=== PATIENT | female | born 1960 | race Caucasian/White ===

== ENCOUNTER 2016-10-21 14:14 | Emergency (ER) | payer OTHER, BC ==
--- NOTE | 2016-10-21 15:23 | ED ---
HPI Chest Pain - HPI Summary HPI Summary: 56F w/ PMH of lupus, ESRD, and HTN presents with back pain between the shoulders pain today. She states never had this before but is concerned having an NE. She states the back pain started at 12:30pm and last till 1:30pm. She admits to nausea with it. She denies any pain into arm, diaphoresis, and SOB. She states since then she keeps getting these seconds of sternal chest pain. She has a cough which she states she has had as she is getting over a cold. She denies any abdominal pain, vomiting, diarrhea or constipation. She denies any neck pain. She is on Lovenox since she has had two PE in the past but states pain is not like PE in past. Her last stress test was 10 years ago. She was started on a new blood pressure medication on and says that has been nauseous from that too. 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 She is a nonsmoker. She is not diabetic. Her grandparents did have heart attack after age 50. - History of Current Complaint Chief Complaint: EDBackInjuryPain Time Seen by Provider: 10/21/16 14:58 Pain Intensity: 2 - Additional Pertinent History Primary Care Physician: [id number] - Allergy/Home Medications Allergies/Adverse Reactions: Allergies Allergy/AdvReac Type Severity Reaction Status Date / Time Codeine Allergy Unknown Verified 10/21/16 14:20 Reaction Details Sulfamethoxazole Allergy See Comment Verified 10/21/16 14:20 w/Trimethoprim [From Bactrim] PMH/Surg Hx/FS Hx/Imm Hx Endocrine/Hematology History: Reports: Hx Anticoagulant Therapy - lovenox, Hx Systemic Lupus Erythematosus Denies: Hx Diabetes Cardiovascular History: Reports: Hx Deep Vein Thrombosis, Hx Embolism Denies: Hx Congestive Heart Failure, Hx Hypertension, Hx Pacemaker/ICD Respiratory History: Reports: Hx Pneumonia, Hx Pulmonary Embolism, Hx Seasonal Allergies Denies: Other Respiratory Problems/Disorders History: Reports: Hx Acute Renal Failure, Hx Chronic Renal Failure, Hx Renal Disease - FROM LUPUS Musculoskeletal History: Reports: Hx Arthritis - with lupus flare Denies: Hx Osteoporosis Sensory History: Reports: Hx Contacts or Glasses Denies: Hx Hearing Aid Opthamlomology History: Reports: Hx Contacts or Glasses Psychiatric History: Reports: Hx Anxiety, Hx Depression Denies: Hx Panic Disorder - Cancer History Hx Chemotherapy: Yes - for LUPUS Hx Radiation Therapy: No - Surgical History Surgery Procedure, Year, and Place: Hx Anesthesia Reactions: No - Immunization History Date of Tetanus Vaccine: up to date Date of Influenza Vaccine: 03/18/16 Infectious Disease History: No Infectious Disease History: Denies: History Other Infectious Disease, Traveled Outside the [place] in Last 30 Days - Family History Known Family History: Positive: Cardiac Disease - Social History Alcohol Use: Occasionally Alcohol Amount: 1 drink/month Substance Use Type: Reports: None Smoking Status (MU): Never Smoked Tobacco Have You Smoked in the Last Year: No Review of Systems Negative: Fever Positive: Chest Pain Negative: Shortness Of Breath Negative: Abdominal Pain, Vomiting, Diarrhea, Nausea Negative: Headache All Other Systems Reviewed And Are Negative: Yes Physical Exam Triage Information Reviewed: Yes Vital Signs On Initial Exam: Initial Vitals Temp Pulse Resp BP Pulse Ox 98.7 F 102 16 155/92 100 10/21/16 14:21 10/21/16 14:21 10/21/16 14:21 10/21/16 14:21 10/21/16 14:21 Vital Signs Reviewed: Yes Appearance: Positive: Well-Appearing Skin: Positive: Warm, Dry Head/Face: Positive: Normal Head/Face Inspection Eyes: Positive: Normal, Conjunctiva Clear ENT: Positive: Normal ENT inspection, Pharynx normal, TMs normal Respiratory/Lung Sounds: Positive: Clear to Auscultation, Breath Sounds Present , Other - chest wall nontender Cardiovascular: Positive: Normal, RRR Abdomen Description: Positive: Nontender, Soft Bowel Sounds: Positive: Present Musculoskeletal: Positive: Strength/ROM Intact - of upper arms, Other - good pulses, nontender to upper thoracic back - Samira Coma Scale Coma Scale Total: 15 Diagnostics - Vital Signs Vital Signs Temp Pulse Resp BP Pulse Ox 10/21/16 14:21 98.7 F 102 16 155/92 100 - Laboratory Result Diagrams: 10/21/16 15:20 10/21/16 15:20 Lab Statement: Any lab studies that have been ordered have been reviewed, and results considered in the medical decision making process. - Radiology chest Xray Interpretation: No Acute Changes Radiology Interpretation Completed By: Radiologist - EKG No standard instances Cardiac Rate: NL EKG Rhythm: Sinus Rhythm ST Segment: Normal Re-Evaluation - Re-Evaluation First Eval Re-Evaluation Time: 16:43 Change: Worse Comment: says chest pain with back pain reoccurred for instant, is not reproducible Chest Pain Course/Dx - Course Course Of Treatment: 56F w/ lupus presents with back pain between shoulder blades and seconds of intermittent chest pain. denies any SOB or pain into arms. never had this before. has history of PE that is on lovenox for but states pain is not like PE pain. back pain resolved at time but continues to get seconds of sternal chest pain. labs normal WBC, first troponin normal. Co2 14. spoke with dr griffin said to get ABG and d-dimer. unable to get CTA due to gfr being too low. spoke with dr hodges will have someone evaluate in ED. patient was evaluated by hospitalist who believe this is more of a chronic condition rather than ACS.normal d-dimer, EKG, chest xray. signed out to Penelope pending second troponin for disposition. - Chest Pain Differential Diagnosis/HQI/PQRI: Acute NE, Angina, Chest Wall, Lower Respiratory Infection, Pulmonary Embolism - Diagnoses Provider Diagnoses: Chest pain, Back pain - Provider Notifications Discussed Care Of Patient With: dr hodges Time Discussed With Above Provider: 16:51 - will consult Discharge - Discharge Plan Condition: Stable Disposition: OTHER Discharge Disposition Comment: signed out to [facility] Cortez pending troponin Patient Education Materials: Chest Pain (ED) Referrals: Lesia Hu MD [Primary Care Provider] - Additional Instructions: Follow up with radiology equipment servicer within 5 days, is suggested that get a stress test soon Return to ED if develop shortness of breath, chest pain radiates into arm, or any new or worsening symptoms
[2016-10-21] MEDS ORDERED: Aspirin Low Dose CHEW TAB* 81 MG PO ONE (15:35)
[2016-10-21 15:36] LABS: Hematocrit 30 % (35-47); Hemoglobin 9.8 g/dl (12.0-16.0); Mean Corpuscular HGB Conc 33 g/dl (31-36); Mean Corpuscular Hemoglobin 28 pg (27-31); Mean Corpuscular Volume 86 fL (80-97); Mean Platelet Volume 8 um3 (7.4-10.4); Red Blood Count 3.47 10^6/ul (4.0-5.4); Red Cell Distribution Width 15 % (10.5-15); White Blood Count 9.7 10^3/ul (3.5-10.8)
[2016-10-21 15:52] LABS: Albumin 3.4 g/dL (3.2-5.2); BUN/Creatinine Ratio 15.6 (8-20); Calcium 8.4 mg/dL (8.6-10.3); EGFR African American 37.8 (>60); EGFR Non-African American 29.4 (>60); Globulin 2.6 g/dL (2-4); Potassium 5.2 mmol/L (3.5-5.0); Total Bilirubin 0.2 mg/dL (0.2-1.0)
--- NOTE | 2016-10-21 16:01 | RAD ---
INDICATION: Chest pain. Cough COMPARISON: March 25, 2014 TECHNIQUE: PA and lateral dual-energy views were obtained. FINDINGS: Bones/Soft Tissues: There are no acute bony findings. Cardiomediastinal: The cardiomediastinal silhouette is normal. Lungs: There are no infiltrates. Pleura: There are no pleural effusions. Other: None IMPRESSION: NO ACTIVE DISEASE.
[2016-10-21 17:23] LABS: PCO2 Arterial 26 mmHg (35-45)
--- NOTE | 2016-10-21 20:42 | PN ---
Progress Note - Progress Note Note: First Trop 0.00 Second Trop 0.74 Third trop 0.[address] Daugherty and Dr. Fernandez approval d/t trop 0.00 likely the second trop an abnormal draw/value. Patient OK with discharge.
[2016-10-21 20:46] VITALS: BP 164/125
--- NOTE | 2016-10-21 22:35 | CONS ---
HOSPITAL MEDICINE CONSULTATION: DATE OF CONSULT: 10/21/16 PRIMARY CARE PHYSICIAN: Dr. Hu. ATTENDING PHYSICIAN: Dr. Arianne Robert (dictation provided by Keira Veras NP). REASON FOR CONSULTATION: Question of need for admission. HISTORY OF PRESENT ILLNESS: Ms. Tafoya is a 56-year-old female with a past medical history of lupus, CKD, anemia, Sjogren's, PE and DVT, on chronic anticoagulation, who presents to the hospital today with concern for back pain. Ms. Tafoya states that she has been feeling rather low recently. She had had a lupus flare about 2 or 3 weeks ago, but that had passed with treatment with prednisone. Today, the patient was cleaning up around her house when she developed some back pain and mid back on the right. She lied down, got up, took a hot shower. She describes it as a discrete, localized throbbing sensation. The pain lasted about 20 minutes. After this, she also had some right-sided chest discomfort which she described as "zing sensation." She does have chronic pain in her chest which she relates to her lupus. She has been taking all her medications regularly including her Lovenox. She denies any other complaint today. She has had no fever, no cough. She has been eating and drinking normally. No issues with urination and she has been having normal formed bowel movements. In the emergency room, Ms. Tafoya had a chest x-ray, which showed no acute abnormality. She did have numerous laboratory abnormalities, all of which were chronic. She is anemic with a hemoglobin of 9.8. Her potassium is elevated to 5.2. Her serum bicarbonate is 14. BUN and creatinine are elevated at 28 and 1.79 respectively; however, these are all consistent with the patient's long history of lupus and CKD with associated anemia and low bicarbonate levels. When questioned, Ms. Tafoya states she came to the emergency room because of her multiple chronic medical issues and she was concerned that perhaps something was wrong although she was asymptomatic with no further complaints. PAST MEDICAL HISTORY: 1. Lupus. 2. Chronic kidney disease. 3. Anemia. 4. Raynaud's. 5. GERD. 6. Sjogren's. 7. History of DVT and PE, on Lovenox. 8. Hypertension. MEDICATIONS: 1. Rituxan mg IV as directed. 2. Prednisone 10 mg every other day. 3. Sodium polystyrene sulfonate 15 g p.o. daily. 4. Sertraline 50 mg p.o. daily. 5. Mycophenolate 500 mg p.o. b.i.d. 6. Hydroxychloroquine 200 mg p.o. b.i.d. 7. Esomeprazole 40 mg p.o. daily p.r.n. 8. Enoxaparin 80 mg subcutaneously daily. 9. Claritin p.r.n. 10. Ethacrynic acid as directed. ALLERGIES: To CODEINE, SULFAMETHOXAZOLE, and TRIMETHOPRIM. FAMILY HISTORY: The patient reports her dad has thyroid "issues." Mom is alive and well at 82. SOCIAL HISTORY: No report of alcohol, tobacco, or drug use. The patient lives with her , who is the healthcare proxy. REVIEW OF SYSTEMS: A 14-point review of systems was completed with Ms. Tafoya and all those not mentioned above were negative. PHYSICAL EXAM: Vital Signs: Temperature 98.7, heart rate 79, respiratory rate 22, O2 saturation 98% on room air, blood pressure 132/90. General: Ms. Tafoya is sitting in the bed with her at the bedside. She is in no acute distress. Neuro: She is alert. She is oriented x3. She moves all extremities equally. There is no facial asymmetry or focal weakness. Extraocular movements are intact. Heart: S1, S2. No murmur, rub, or gallop and regular. Lungs are clear to auscultation bilaterally with no accessory muscle use and good aeration. The abdomen is soft, nontender with bowel sounds positive x4. Extremities: No cyanosis. No edema. Skin is intact. DIAGNOSTIC STUDIES/LAB DATA: WBC 9.7, hemoglobin 9.8, hematocrit 30, platelet count 338. D-dimer less than 200. Blood gas shows pH 7.31, PCO2 26, PO2 94, bicarbonate 15.7. Sodium 136, potassium 5.2, chloride 116, serum bicarbonate 14 , BUN 28, creatinine 1.79, glucose 109, lactic acid 0.5. Chest x-ray again shows no acute process. ASSESSMENT: Ms. Tafoya is a 56-year-old female with a complicated past medical history including lupus with associated anemia and chronic kidney disease in addition to Sjogren's, Raynaud's, and history of deep venous thrombosis/pulmonary embolism, on Lovenox therapy who presents today to the hospital with concern for episode of right-sided back pain. In the emergency room, she had multiple laboratory abnormalities and this raised the question of whether the patient should be admitted to the hospital. She again is asymptomatic at this point. She did describe some chest discomfort which is atypical in its character. Her first troponin was negative. I would recommend a repeat troponin though I am not suspicious that she has an acute coronary syndrome. The back pain is likely musculoskeletal in origin. She has no evidence of deep venous thrombosis or pulmonary embolism. Her D-dimer is less than 200 and she is on chronic anticoagulation. She has no evidence of pneumonia on chest x-ray. I think Ms. Tafoya is medically stable for discharge to home to follow up with her providers including Dr. Hu, Dr. Solorio, and Dr. Felipe, her material handler. TIME SPENT: Approximately 45 minutes were spent on the consultation of this patient, more than half time spent with her at the bedside reviewing the events leading up to this hospitalization, performing the physical examination, and reviewing the plan of care. KEIRA VERAS NP CC: Dr. Hu* [id number]/[facility] #: [id number] MTDD
== END 2016-10-21 20:51 ==
LOC: ED 14:14
DX: R07.9 Chest pain, unspecified (principal); M54.6 Pain in thoracic spine; I12.0 Hypertensive chronic kidney disease with stage 5 chronic kidney disease or end stage renal disease; N18.6 End stage renal disease; M32.9 Systemic lupus erythematosus, unspecified; Z86.718 Personal history of other venous thrombosis and embolism; Z79.01 Long term (current) use of anticoagulants; M35.00 Sjogren syndrome, unspecified; I73.00 Raynaud's syndrome without gangrene
CPT/HCPCS: 36415; 36600; 71020; 80053; 82803; 83605; 84484; 85025; 85379; 93005; 99283; A9270-GY

== ENCOUNTER 2018-03-30 12:37 | Emergency (ER) | payer OTHER ==
[2018-03-30 13:57] LABS: ABS Basophils 0.1 10^3/ul (0-0.2); ABS Eosinophils 0.1 10^3/ul (0-0.6); ABS Lymphocytes 1.3 10^3/ul (1.0-4.8); ABS Monocytes 1.1 10^3/ul (0-0.8); ABS Nucleated RBC 0 10^3/ul; Hematocrit 35 % (35-47); Hemoglobin 11.2 g/dl (12.0-16.0); Lymphocyte % 10.1 % (25-47); Mean Corpuscular HGB Conc 32 g/dl (31-36); Mean Corpuscular Hemoglobin 28 pg (27-31); Mean Corpuscular Volume 86 fL (80-97); Mean Platelet Volume 8.5 fL (7.4-10.4); Nucleated Red Blood Cells % 0; Platelet Count 352 10^3/ul (150-450); Red Blood Count 4.03 10^6/ul (4.00-5.40); Red Cell Distribution Width 15 % (10.5-15); White Blood Count 12.7 10^3/ul (3.5-10.8)
[2018-03-30 14:05] LABS: INR 1.03 (0.77-1.02)
[2018-03-30 14:14] LABS: EGFR Non-African American 30.5 (>60)
--- NOTE | 2018-03-30 14:15 | ED ---
Neck Pain - HPI Summary HPI Summary: Patient is a 57-year-old female with a history of SLE and Sjogren's on chronic steroid use and recently diagnosed with Haney's palsy presenting to the ED with right sided submandibular mass. She was sent here from her PCP office, Dr. hu. She states the mass has grown significantly over the past 2-3 days. It was not abrupt and did not develop immediately following chewing. This is never happened to her before. She denies any fevers, sweats, chills. Endorses odynophagia, but denies dysphagia. Endorses some right ear pain which she states feels as though it is a pressure. She denies any left-sided neck tenderness or posterior cervical spine tenderness. She is able to rotate her neck as well as flex and extend. She denies any chest pain, shortness of breath , belly pain. Denies any other symptoms otherwise. - History of Current Complaint Chief Complaint: EDNeckComplaint Stated Complaint: THROAT SWELLING Time Seen by Provider: 03/30/18 13:36 Hx Obtained From: Patient Timing: Constant Onset/Duration: Gradual Onset Severity Initially: Severe Severity Currently: Severe Pain Intensity: 8 Pain Scale Used: 0-10 Numeric Location: Discrete At: - right submandibular mass Aggravating Factors: Nothing Alleviating Factors: Nothing Associated Signs & Symptoms: Positive: Swelling. Negative: Redness, Bruising, Fever, Nuchal Rigity, Weakness, Headache, Paresthesia - Risk Factors Meningitis Risk Factors: Negative - Allergies/Home Medications Allergies/Adverse Reactions: Allergies Allergy/AdvReac Type Severity Reaction Status Date / Time codeine Allergy Unknown Verified 03/30/18 12:51 Reaction Details sulfamethoxazole Allergy See Comment Verified 03/30/18 12:51 [From Bactrim] trimethoprim [From Bactrim] Allergy See Comment Verified 03/30/18 12:51 Home Medications: Home Medications Amoxicillin PO (*) [Amoxicillin 875 MG (*)] 875 mg PO BID 03/30/18 [History Confirmed 03/30/18] Hipolito/D3/Mag11/Zinc/Supervisor Color Making/Yonny/Bor [Caltrate 600+D Plus] 1 tab PO BID 03/30/18 [ History Confirmed 03/30/18] Cetirizine* [ZyrTEC 10 MG TAB*] 10 mg PO QPM 03/30/18 [History Confirmed ] Cholecalciferol TAB* [Vitamin D TAB*] 2,000 units PO DAILY 03/30/18 [History Confirmed 03/30/18] Esomeprazole(NF) [NexIUM(NF)] 40 mg PO DAILY PRN 03/30/18 [History Confirmed 10/10] Mometasone NASAL (NF) [Nasonex (NF)] 1 spray BOTH NARES DAILY 03/30/18 [History Confirmed 03/30/18] Mycophenolate Mofetil TAB(*) [Cellcept TAB(*)] 1,000 mg PO BID 03/30/18 [ History Confirmed 03/30/18] Sertraline* [Zoloft*] 75 mg PO DAILY 03/30/18 [History Confirmed 03/30/18] riTUXimab* [Rituxan*] 375 mg IV Q168D 03/30/18 [History Confirmed 03/30/18] PMH/Surg Hx/FS Hx/Imm Hx Previously Healthy: Yes Endocrine/Hematology History: Reports: Hx Anticoagulant Therapy - lovenox, Hx Systemic Lupus Erythematosus Denies: Hx Diabetes Cardiovascular History: Reports: Hx Deep Vein Thrombosis, Hx Embolism Denies: Hx Congestive Heart Failure, Hx Hypertension, Hx Pacemaker/ICD Respiratory History: Reports: Hx Pneumonia, Hx Pulmonary Embolism, Hx Seasonal Allergies Denies: Other Respiratory Problems/Disorders History: Reports: Hx Acute Renal Failure, Hx Chronic Renal Failure, Hx Renal Disease - FROM LUPUS Musculoskeletal History: Reports: Hx Arthritis - with lupus flare Denies: Hx Osteoporosis Sensory History: Reports: Hx Contacts or Glasses Denies: Hx Hearing Aid Opthamlomology History: Reports: Hx Contacts or Glasses Neurological History: Denies: Other Neuro Impairments/Disorders - HX LUPUS Psychiatric History: Reports: Hx Anxiety, Hx Depression Denies: Hx Panic Disorder - Cancer History Hx Chemotherapy: Yes - for LUPUS Hx Radiation Therapy: No - Surgical History Surgery Procedure, Year, and Place: Hx Anesthesia Reactions: No - Immunization History Date of Tetanus Vaccine: up to date Date of Influenza Vaccine: 03/18/16 Hx Pertussis Vaccination: No Immunizations Up to Date: Yes Infectious Disease History: No Infectious Disease History: Denies: History Other Infectious Disease, Traveled Outside the [place] in Last 30 Days - Family History Known Family History: Positive: Cardiac Disease - Social History Occupation: Employed Full-time Lives: With Family Alcohol Use: None Alcohol Amount: 1 drink/month Hx Substance Use: No Substance Use Type: Reports: None Hx Tobacco Use: No Smoking Status (MU): Never Smoked Tobacco Have You Smoked in the Last Year: No Review of Systems Constitutional: Negative Negative: Fever, Chills, Fatigue Negative: Blurred Vision, Diplopia, Drainage Positive: Other - right-sided submandibular mass, protrusion of the tongue to the right unaffected side, likely secondary to Haney's palsy Negative: Palpitations, Chest Pain Negative: Shortness Of Breath, Cough Genitourinary: Negative Positive: no symptoms reported, see HPI Negative: Arthralgia, Myalgia Negative: Rash, Bruising Neurological: Negative All Other Systems Reviewed And Are Negative: Yes Physical Exam Triage Information Reviewed: Yes Vital Signs On Initial Exam: Initial Vitals Temp Pulse Resp BP Pulse Ox 97.9 F 87 16 168/98 99 03/30/18 12:48 03/30/18 12:48 03/30/18 12:48 03/30/18 12:48 03/30/18 12:48 Vital Signs Reviewed: Yes Appearance: Positive: Well-Appearing, Well-Nourished Skin: Positive: Skin Color Reflects Adequate Perfusion Head/Face: Positive: Normal Head/Face Inspection, Other - Right sided submandibular mass ENT: Positive: Other - Tongue protrusion to the right side (affected side) likely secondary to Haney's palsy Neck: Positive: Supple, Tenderness @ - Right submandibular area measuring approximately 5 cm in diameter Respiratory/Lung Sounds: Positive: Clear to Auscultation, Breath Sounds Present Cardiovascular: Positive: Pulses are Symmetrical in both Upper and Lower Extremities. Negative: Leg Edema Left, Leg Edema Right Bowel Sounds: Positive: Present Musculoskeletal: Positive: Normal, Strength/ROM Intact Neurological: Positive: Sensory/Motor Intact, Alert, Oriented to Person Place, Time, Speech Normal Psychiatric: Positive: Normal, Affect/Mood Appropriate AVPU Assessment: Alert Diagnostics - Vital Signs Vital Signs Temp Pulse Resp BP Pulse Ox 03/30/18 12:48 97.9 F 87 16 168/98 99 - Laboratory Lab Results: Lab Results 03/30/18 03/30/18 Range/Units 13:46 13:46 WBC 12.7 H (3.5-10.8) 10^3/ul RBC 4.03 (4.00-5.40) 10^6/ul Hgb 11.2 L (12.0-16.0) g/dl Hct 35 (35-47) % MCV 86 (80-97) fL MCH 28 (27-31) pg MCHC 32 (31-36) g/dl RDW 15 (10.5-15) % Plt Count 352 (150-450) 10^3/ul MPV 8.5 (7.4-10.4) fL Neut % (Auto) 79.1 (38-83) % Lymph % (Auto) 10.1 L (25-47) % [place] % (Auto) 8.7 H (0-7) % Eos % (Auto) 1.0 (0-6) % Baso % (Auto) 1.1 (0-2) % Absolute Neuts (auto) 10.0 H (1.5-7.7) 10^3/ul Absolute Lymphs (auto) 1.3 (1.0-4.8) 10^3/ul Absolute Monos (auto) 1.1 H (0-0.8) 10^3/ul Absolute Eos (auto) 0.1 (0-0.6) 10^3/ul Absolute Basos (auto) 0.1 (0-0.2) 10^3/ul Absolute Nucleated RBC 0 10^3/ul Nucleated RBC % 0 INR (Anticoag Therapy) 1.03 H (0.77-1.02) APTT 48.3 H (26.0-36.3) seconds Result Diagrams: 03/30/18 13:46 03/30/18 13:46 Lab Statement: Any lab studies that have been ordered have been reviewed, and results considered in the medical decision making process. - CT No standard instances CT Interpretation Completed By: Radiologist - IMPRESSION: 1. THERE IS FATTY ATROPHY OF THE SUBMANDIBULAR AND PAROTID GLANDS BILATERALLY WITH MORE ACUTE INFLAMMATORY CHANGE OF THE RIGHT SUBMANDIBULAR GLAND SUGGESTIVE OF ACUTE ON CHRONIC SIALOADENITIS, INCLUDING THE SETTING OF CHRONIC SIALOADENITIS SECONDARY TO SJOGREN'S SYNDROME. THERE IS NO APPRECIABLE SIALOLITHIASIS. THERE IS DILATATION OF THE SUBMANDIBULAR DUCT ON THE RIGHT WHICH MAY INDICATE THE PRESENCE OF STENOSIS IN THE SETTING OF CHRONIC SIALOADENITIS. 2. THERE IS MUCOSAL THICKENING OF THE BASE OF THE EPIGLOTTIS WITH PARTIAL EFFACEMENT OF THE RIGHT VALLECULA WHICH IS LIKELY REACTIVE FROM THE ADJACENT INFLAMMATORY CHANGE OF THE RIGHT SEVENTH RIB GLAND. Neck Course/Dx - Course Course Of Treatment: During the course of treatment, the patient is evaluated for right submandibular mass measuring approximately 5 cm in diameter. The area is exquisitely tender on palpation, however is non-erythematous and not warm to touch. Tongue protrusion to the right, to the affected side. This is likely secondary to her recent diagnosis of Haney's palsy. CT neck without contrast obtained. Labs obtained. Vital signs are stable on arrival and patient appears well and nontoxic. No speech difficulties. No focal neurologic deficits. Mallampati score 2. Denies any shortness of breath. CT scan shows this is likely secondary to submandibular Philip tinnitus. Due to patient's SLE and Sjogren's syndrome, this is most likely diagnosis. Discussed with patient treatment options. I have strongly encouraged hard candies, specifically lemon drops, Biotene, rehydration and due to her immunosuppression , I will also add on a short course of antibiotics for possible bacterial component. There is no erythema or warmth to suggest infection. She will follow back up with Dr. hu. She understands return precautions and is okay for discharge at this time. - Diagnoses Differential Dx/HQI/PQRI: Positive: Other - Machelle's duct obstruction, sialadenitis, Sjogren syndrome, deep space neck infection, superlative bacterial sialadenitis Provider Diagnoses: Sialadenitis Discharge - Sign-Out/Discharge Documenting (check all that apply): Patient Departure - Discharge Plan Condition: Stable Disposition: HOME Prescriptions: Cephalexin CAP* [Keflex CAP*] 500 mg PO TID #15 cap MDD 3 Patient Education Materials: Sialoadenitis (ED), Sjogren Syndrome (DC) Referrals: Lesia Hu MD [Primary Care Provider] - Additional Instructions: Conservative management is the mainstay of treatment in the majority of patients presenting to a primary multi care technician. Patients should be instructed to keep well hydrated, apply moist heat to the involved area, massage the gland , and "milk" the duct. Keflex 500mg three times daily x 5 days Nonpharmacologic agents that promote salivary flow (eg, tart, hard candies such as lemon drops) may be helpful and should be used throughout the day s often as tolerated by the patient. Moderate pain can generally be controlled with nonsteroidal antiinflammatory drugs (NSAIDs) such as ibuprofen; NSAIDs may also help reduce inflammation. - Billing Disposition and Condition Condition: STABLE Disposition: Home
[2018-03-30 15:32] VITALS: BP 178/97
== END 2018-03-30 15:35 | disposition home or self-care (01) ==
LOC: ED 12:37
DX: K11.20 Sialoadenitis, unspecified (principal); Z86.718 Personal history of other venous thrombosis and embolism; Z79.01 Long term (current) use of anticoagulants; F41.9 Anxiety disorder, unspecified; F32.9 Major depressive disorder, single episode, unspecified; Z88.5 Allergy status to narcotic agent; Z88.2 Allergy status to sulfonamides
CPT/HCPCS: 36415; 70490; 80053; 83605; 84484; 85025; 85610; 85730; 87040; 99282

== ENCOUNTER 2019-01-04 11:17 | Emergency (ER) | payer OTHER ==
--- OUTSIDE RECORDS SUMMARY | 2019-01-04 11:22 | XMS REPORT | Continuity of Care Document ---
:1960 External Reference #:[id number] Author Name Carlos Solorio M.D. (transmitted by agent of provider Melanie Ruano) Address [address] [place] [address] Care Team Providers Name Role Phone Roseanne Paulino MD - Gastroenterology Care Team Information Technical Rep Lesia Hu MD - Internal Care Team Information Technical Rep [phone] Medicine Carlos Solorio MD - Rheumatology Care Team Information Technical Rep [phone] Problems Active Problems Provider Date Systemic lupus erythematosus Matthew Albright M.D. Onset: 02/13/2012 Acute glomerulonephritis Matthew Albright M.D. Onset: 05/10/2013 Pulmonary embolism Lesia Hu M.D. 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 Onset: 01/25/2014 Generalized anxiety disorder Kindra Aguilar M.D. Onset: 09/07/2012 Raynaud's disease Matthew Albright M.D. Onset: 02/26/2013 Gastroesophageal reflux disease Matthew Albright M.D. Onset: 10/27/2013 Candidiasis of mouth Matthew Albright M.D. 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 Onset: 03/08/2015 erythematosus Long-term current use of systemic steroid Matthew Albright M.D. Onset: 2014 Anemia of chronic disease Matthew Albright M.D. Onset: 04/24/2015 Psychophysiologic insomnia Matthew Albright M.D. Onset: 07/31/2015 Anemia Carlos Solorio M.D. Onset: 10/11/2016 Social History Type Date Description Comments Sex Unknown Tobacco Use Start: Unknown Never Smoked Cigarettes Smoking Status Reviewed: 01/01/19 Never Smoked Cigarettes ETOH Use Drinks Alcoholic 1 every 2-3 weeks Beverages Rarely Tobacco Use Start: Unknown Patient has never smoked Recreational Drug Use Denies Drug Use Exercise Type/Frequency Exercises rarely Allergies, Adverse Reactions, Alerts Active Allergies Reaction Severity Comments Date Celebrex lip swelling 08/27/2011 Bactrim increase in creatinine to 06/12/2015 2.6 Doxycycline Stomach pain 08/12/2017 Polysorbate 80 01/30/2018 Neomycin 01/30/2018 Glutaraldehyde 01/30/2018 Methyldibromo Glutaronitrile 01/30/2018 Inactive Allergies NKDA 09/04/2010 Medications Active Medications SIG Qnty Indications Ordering Date Provider Clonazepam 1/2-1 tablet at 30tabs F33.9 Lesia 12/23/19 0.5mg Tablets bedtime Rylan Hu Tramadol HCL take one 14tabs Carlos Solorio, 12/23/19 50mg Tablets capsule/tablet by Rylan 19 mouth twice daily as needed for pain Azelastine HCL (Nasal) use 1 to 2 sprays 30ml Lesia 12/23/19 0.1% in each nostril two Rylan Hu Solution times daily as needed Protonix 1 by mouth every 90tabs Carlos Solorio, 11/18/[address] day as needed for M.D. 19 reflux Mycophenolate Mofetil take 2 milliliters 160units Carlos Solorio 10/27/19 by mouth two times M.Na 19 200mg/ml Suspension Rec a day Gabapentin 1-3 tablets once 90caps F33.9 Lesia 09/01/19 100mg Capsules daily at bedtime Rylan Hu Medrol take 4 tabs daily 90tabs Carlos Solorio, 07/02/19 4mg Tablets for 4 days then 3 M.Na 19 tabs daily for 4 days then 2 tabs daily for 4 days then 1 tab daily ongoing Zofran take one 14tabs Carlos Solorio, 05/15/20 4mg Tablets capsule/tablet by Rylan 18 mouth twice daily as needed for nausea Zyrtec Allergy take one tablet by 30caps Lesia 03/12/20 10mg mouth in the Rylan Hu 18 Capsules evening Rituxan 375 mg/ M2 IV Carlos Solorio, 11/21/19 100mg/10ML Solution infusion weekly x 4 M.DStacie 16 doses Compression Stockings thigh high - wear 1Pair R60.0 Lesia 10/06/19 daily Rylan Hu 16 20-30mm HG Misc Sertraline HCL Take 2 tablets 135tabs F51.04 Lesia 07/31/19 50mg Tablets daily Rylan Hu 16 Hydroxychloroquine Take 1 Tablet By 180tabs Carlso Solorio, 09/05/19 Sulfate Mouth Twice A Day M.DStacie 11 200mg Tablets Vitamin D-3 1 by mouth every Unknown 1000Unit day 00 Capsules Caltrate 600+D take 2 capsules Unknown daily 00 [id number] Tablets Enoxaparin Sodium inject 1 Syringe Adolfo, subcutaneously once MD Cathie 80mg/0.8ML Solution daily Diltiazem HCL ER take 1 tab daily Ray Felipe, 240mg Hyacinth BRITT 00 ER 12HR Atorvastatin Calcium 1 by mouth every 90tabs [facility] 10mg day Rylan Hu 00 Tablets History Medications Azithromycin 2 tabs by mouth on 6tabs Carlos Solorio, 11/17/2018 - 250mg day 1; 1 tab by Rylan 12/21/2018 Tablets mouth every day on days 2-5 Esomeprazole Take 1 Capsule By 90capbeverly Solorio, 11/10/2018 - Magnesium Mouth Daily as M.DStacie 11/17/2018 40mg Needed Capsules Fluticasone Use 2 Sprays In 48units Lesia 11/10/2018 - Propionate Each Nostril Once Rylan Hu 11/17/2018 A Day 50mcg/Act Suspension Diflucan take one 10tabs Carlos Solorio, 10/08/2018 - 150mg capsule/tablet M.DStacie 11/17/2018 Tablets daily by mouth for 10 days as needed for oral candidiasis Levofloxacin take 2 on day 1, 15tabs J01.90 Shelia Chin, 08/11/2018 - 250mg then 1 PO qd after N.P. 11/17/2018 Tablets that Benzonatate one by mouth three 30caps J01.90 Shelia Chin, 08/11/2018 - 100mg times daily as N.P. 08/25/2018 Capsules needed for cough Trazodone HCL take 1-2 tablets 60tabs F33.9 Lesia 08/11/2018 - 50mg by mouth once Cotton, M.D. 08/31/2018 Tablets daily at bedtime Gabapentin 1-3 tablets once 60caps F33.9 Lesia 07/20/2018 - 100mg daily at bedtime Cotton, M.D. 08/11/2018 Capsules Tacrolimus take one 30caps M32.14 Carlos Gastelumdor, 07/16/2018 - 5mg capsule/tablet M.D. 08/19/2018 Capsules daily by mouth Immunizations CPT Code Status Date Vaccine Lot # [id number] Given 01/24/2018 Influenza Virus Vaccine, Quadrivalent, Split, Preservative Free 82354 Given 02/25/2017 Influenza Virus Vaccine, Quadrivalent, Split, [id number] Preservative Free 86815 Given 06/18/2016 Pneumonia Vaccine [id number] 87044 Given 06/12/2015 Influenza Virus Vaccine, Quadrivalent, Split, [id number] Preservative Free 68599 Given 01/26/2015 Pneumococcal Conjugate Vaccine 13 Valent For [id number] Intramuscular Use 80362 Given 09/07/2012 Tdap - Tetanus/Diptheria/Acellular Pertussis [id number] Vital Signs Date Vital Result Comment 01/01/2019 11:42am Height 66.5 inches 5'6.50" Weight 170.12 lb Heart Rate 93 /min BP Systolic 130 mmHg BP Diastolic 88 mmHg Body Temperature 99.3 F Pain Level 8 O2 % BldC Oximetry 98 % BMI (Body Mass Index) 27.0 kg/m2 12/22/2018 10:33am Height 66.5 inches 5'6.50" Weight 172.00 lb Heart Rate 88 /min BP Systolic 129 mmHg BP Diastolic 89 mmHg O2 % BldC Oximetry 98 % BMI (Body Mass Index) 27.3 kg/m2 Results Test Date Facility Test Result H/L Range Note Urinalysis Profile 12/21/2018 [facility] Urine Color Yellow [address] [place] [address] [phone] Urine Appearance Cloudy Urine Specific [place] 1.019 Normal 1.010-1.030 Urine pH 5.0 Normal 5-9 Urine Urobilinogen Negative Negative Urine Ketones Trace Abnormal Negative Urine Protein 2+(100 mg/dL) Abnormal Negative Urine Leukocytes 3+ Abnormal Negative Urine Blood Negative Negative Urine Nitrite Negative Negative Urine Bilirubin Negative Negative Urine Glucose Negative Negative Urine White Blood Cell 3+(>20/hpf) Abnormal Absent Urine Red Blood Cell 2+(6-10/hpf) Abnormal Absent Urine Bacteria Absent Absent Urine Squamous Epithelial Cell Present Abnormal Absent Urine Hyaline Casts Present Abnormal Absent Comp Metabolic 12/21/2018 [facility] Sodium 140 mmol/L Normal 135-[address] [place] [address] [phone] Potassium 4.8 mmol/L Normal 3.5-5.0 Chloride 111 mmol/L Normal 101-111 Co2 Carbon Dioxide 22 mmol/L Normal 22-32 Anion Gap 7 mmol/L Normal 2-11 Glucose 80 mg/dL Normal 70-100 Blood Urea Nitrogen 24 mg/dL Normal 6-24 Creatinine 1.62 mg/dL High 0.51-0.95 BUN/Creatinine Ratio 14.8 Normal 8-20 Calcium 8.8 mg/dL Normal 8.6-10.3 Total Protein 6.4 g/dL Normal 6.4-8.9 Albumin 4.2 g/dL Normal 3.2-5.2 Globulin 2.2 g/dL Normal 2-4 Albumin/Globulin Ratio 1.9 Normal 1-3 Total Bilirubin 0.30 mg/dL Normal 0.2-1.0 Alkaline Phosphatase 66 U/L Normal 34-104 Alt 15 U/L Normal 7-52 Ast 20 U/L Normal 13-39 Egfr Non- 32.8 >60 Egfr 39.6 >60 1 Laboratory test 12/21/2018 [facility] Creatine 110 U/L Normal 10-[address] Kinase(CK) [place] [address] [phone] C Reactive Protein 1.12 mg/L Normal <8.01 3 Folic Acid (Folate) 9.95 ng/mL >3.99 4 Vitamin B12 401 pg/mL Normal 180-914 5 Vitamin D Total 25(Oh) 33.5 ng/mL Normal 20-50 6 CBC Auto 12/21/2018 [facility] White Blood 6.1 10^3/uL Normal 3.5-10.[address] [place] [address] [phone] Red Blood Count 4.49 10^6/uL Normal 3.70-4.87 Hemoglobin 11.2 g/dL Low 12.0-16.0 Hematocrit 36 % Normal 35-47 Mean Corpuscular Volume 80 fL Normal 80-97 Mean Corpuscular Hemoglobin 25 pg Low 27-31 Mean Corpuscular HGB Conc 31 g/dL Normal 31-36 Red Cell Distribution Width 17 % High 10-15 Platelet Count 363 10^3/uL Normal 150-450 Mean Platelet Volume 10.0 fL Normal 7.4-10.4 Abs Neutrophils 4.1 10^3/uL Normal 1.5-7.7 Abs Lymphocytes 1.1 10^3/uL Normal 1.0-4.8 Abs Monocytes 0.6 10^3/uL Normal 0-0.8 Abs Eosinophils 0.3 10^3/uL Normal 0-0.6 Abs Basophils 0.1 10^3/uL Normal 0-0.2 Abs Nucleated RBC 0.0 10^3/uL Granulocyte % 67.0 % Lymphocyte % 17.8 % Monocyte % 9.6 % Eosinophil % 4.4 % Basophil % 1.2 % Nucleated Red Blood Cells % 0.0 Laboratory test 12/21/2018 [facility] Erythrocyte 20 mm/Hr Normal 0-29 [address] Sed Rate [place], [place] [id number] [phone] Urine Culture And 12/21/2018 [facility] Urine Culture SEE [address] [place] [address] BELOW [phone] Laboratory test 12/21/2018 [facility] Complement C3 107 mg/dL 75 - [address] [place] [address] [phone] Complement C4 23 mg/dL 14 - 40 10 Anti Double Stranded Dna AB 42.8 IU/mL Abnormal 11 Laboratory test 11/17/2018 [facility] [place] [facility] Standing Orders Dna DS AB Igg QN <pending> finding Eia Unit/Vol Complement C3 <pending> Complement C4 <pending> Ua Routine 11/17/2018 [facility] Standing Orders Ua Specific [place] <pending> Ua PH <pending> Ua Color <pending> Ua Appera <pending> Ua WBC <pending> Ua Protein <pending> Ua Glucose <pending> Ua Ketones <pending> Ua Bilirubin <pending> Ua Urobilinogen <pending> Ua Nitrite <pending> Ua Occult Blood <pending> CBC W/Auto Diff 11/17/2018 [facility] [place] [facility] Standing Orders White Blood Count <pending> RBC Red Blood Count <pending> Hemoglobin <pending> Hematocrit <pending> MCV (Corpuscular Volume) <pending> MCH (Corpuscular Hemoglobin) <pending> MCHC (Corpuscular Hemog Conc) <pending> RDW <pending> Platelet Count <pending> MPV <pending> Neutrophils <pending> Bands <pending> Lymphocytes <pending> Monocytes <pending> Eosinophils <pending> Basophils <pending> Absolute Basophil <pending> Absolute Eosinophil <pending> Absolute Lymphocyte <pending> Absolute Monocytes <pending> Absolute Neutrophils <pending> CMP Panel 11/17/2018 [facility] [place] Standing Orders Albumin <pending> Alt - SGPT <pending> Calcium <pending> Carbon Dioxide <pending> Chloride <pending> Creatinine <pending> Glucose Serum <pending> Alkaline Phosphatase <pending> Potassium <pending> Total Protein <pending> Sodium <pending> Ast - Sgot <pending> BUN - Urea Nitrogen <pending> Laboratory test 11/12/2018 [facility] Erythrocyte Sed 33 mm/Hr High 0-[address] [place] [address] [phone] CBC Auto Diff 11/12/2018 [facility] White Blood 6.8 Normal 3.5 -10.[address] Count 10^3/[place] [address] [phone] Red Blood Count 4.05 10^6/uL Normal 3.70-4.87 Hemoglobin 10.7 g/dL Low 12.0-16.0 Hematocrit 33 % Low 35-47 Mean Corpuscular Volume 82 fL Normal 80-97 Mean Corpuscular Hemoglobin 26 pg Low 27-31 Mean Corpuscular HGB Conc 32 g/dL Normal 31-36 Red Cell Distribution Width 16 % High 10-15 Platelet Count 312 10^3/uL Normal 150-450 Mean Platelet Volume 9.4 fL Normal 7.4-10.4 Abs Neutrophils 4.6 10^3/uL Normal 1.5-7.7 Abs Lymphocytes 1.1 10^3/uL Normal 1.0-4.8 Abs Monocytes 0.7 10^3/uL Normal 0-0.8 Abs Eosinophils 0.4 10^3/uL Normal 0-0.6 Abs Basophils 0.1 10^3/uL Normal 0-0.2 Abs Nucleated RBC 0.0 10^3/uL Granulocyte % 67.3 % Lymphocyte % 16.0 % Monocyte % 10.4 % Eosinophil % 5.3 % Basophil % 1.0 % Nucleated Red Blood Cells % 0.0 Laboratory test 11/12/2018 [facility] C Reactive 4.64 mg/L Normal <8.[address] [place] [address] [phone] Comp Metabolic 11/12/2018 [facility] Sodium 140 Normal 135- [address] mmol/[place] [address] [phone] Potassium 4.6 mmol/L Normal 3.5-5.0 Co2 Carbon Dioxide 20 mmol/L Low 22-32 Glucose 93 mg/dL Normal 70-100 Blood Urea Nitrogen 19 mg/dL Normal 6-24 Calcium 9.0 mg/dL Normal 8.6-10.3 Total Protein 6.5 g/dL Normal 6.4-8.9 Albumin 3.8 g/dL Normal 3.2-5.2 Globulin 2.7 g/dL Normal 2-4 Albumin/Globulin Ratio 1.4 Normal 1-3 Total Bilirubin 0.30 mg/dL Normal 0.2-1.0 Alkaline Phosphatase 66 U/L Normal 34-104 Alt 16 U/L Normal 7-52 Ast 23 U/L Normal 13-39 Chloride 113 mmol/L High 101-111 Anion Gap 7 mmol/L Normal 2-11 Creatinine 1.62 mg/dL High 0.51-0.95 BUN/Creatinine Ratio 11.7 Normal 8-20 Egfr Non- 32.8 >60 Egfr 39.6 >60 12 Urine Culture And 11/12/2018 [facility] Urine Culture SEE RESULT [address] [place] [address] [phone] Urinalysis Profile 11/12/2018 [facility] Urine Color Yellow [address] [place] [address] [phone] Urine Appearance Clear Urine Specific [place] 1.011 Normal 1.010-1.030 Urine pH 5.0 Normal 5-9 Urine Urobilinogen Negative Negative Urine Ketones Negative Negative Urine Protein 1+(30 mg/dL) Abnormal Negative Urine Leukocytes Trace Abnormal Negative Urine Blood Negative Negative Urine Nitrite Negative Negative Urine Bilirubin Negative Negative Urine Glucose Negative Negative Urine White Blood Cell Trace(0-5/hpf) Absent Urine Red Blood Cell Trace(0-2/hpf) Absent Urine Bacteria Absent Absent Urine Squamous Epithelial Cell Present Abnormal Absent Comp Metabolic 11/03/2018 [facility] Sodium 138 mmol/L Normal 135-145 Panel [address] [place] [address] [phone] Potassium 4.3 mmol/L Normal 3.5-5.0 Co2 Carbon Dioxide 19 mmol/L Low 22-32 Glucose 81 mg/dL Normal 70-100 Blood Urea Nitrogen 27 mg/dL High 6-24 Creatinine 1.64 mg/dL High 0.51-0.95 BUN/Creatinine Ratio 16.5 Normal 8-20 Calcium 8.4 mg/dL Low 8.6-10.3 Total Protein 6.4 g/dL Normal 6.4-8.9 Albumin 4.0 g/dL Normal 3.2-5.2 Globulin 2.4 g/dL Normal 2-4 Albumin/Globulin Ratio 1.7 Normal 1-3 Total Bilirubin 0.30 mg/dL Normal 0.2-1.0 Alkaline Phosphatase 69 U/L Normal 34-104 Alt 10 U/L Normal 7-52 Ast 15 U/L Normal 13-39 Egfr Non- 32.3 >60 Egfr 39.1 >60 14 Chloride 113 mmol/L High 101-111 Anion Gap 6 mmol/L Normal 2-11 Laboratory test 11/03/2018 [facility] C Reactive 2.58 mg/L Normal <8.01 finding [address] [facility] [place] [place] [address] [phone] Urinalysis 11/03/2018 [facility] Urine Color Yellow Profile [address] [place] [address] [phone] Urine Appearance Clear Urine Specific [place] 1.011 Normal 1.010-1.030 Urine pH 5.0 Normal 5-9 Urine Urobilinogen Negative Negative Urine Ketones Negative Negative Urine Protein 1+(30 mg/dL) Abnormal Negative Urine Leukocytes 1+ Abnormal Negative Urine Blood Negative Negative Urine Nitrite Negative Negative Urine Bilirubin Negative Negative Urine Glucose Negative Negative Urine White Blood Cell 1+(6-10/hpf) Abnormal Absent Urine Red Blood Cell Trace(0-2/hpf) Absent Urine Bacteria Absent Absent Urine Squamous Epithelial Cell Present Abnormal Absent Urine Hyaline Casts Present Abnormal Absent CBC Auto 11/03/2018 [facility] White Blood 8.9 10^3/uL Normal 3.5-10.[address] [place] [address] [phone] Red Blood Count 4.24 10^6/uL Normal 3.70-4.87 Hemoglobin 11.1 g/dL Low 12.0-16.0 Hematocrit 35 % Normal 35-47 Mean Corpuscular Volume 81 fL Normal 80-97 Mean Corpuscular Hemoglobin 26 pg Low 27-31 Mean Corpuscular HGB Conc 32 g/dL Normal 31-36 Red Cell Distribution Width 15 % Normal 10-15 Platelet Count 294 10^3/uL Normal 150-450 Mean Platelet Volume 8.8 fL Normal 7.4-10.4 Abs Neutrophils 6.4 10^3/uL Normal 1.5-7.7 Abs Lymphocytes 1.4 10^3/uL Normal 1.0-4.8 Abs Monocytes 0.7 10^3/uL Normal 0-0.8 Abs Eosinophils 0.3 10^3/uL Normal 0-0.6 Abs Basophils 0.1 10^3/uL Normal 0-0.2 Abs Nucleated RBC 0.0 10^3/uL Granulocyte % 71.3 % Lymphocyte % 16.2 % Monocyte % 8.2 % Eosinophil % 3.5 % Basophil % 0.8 % Nucleated Red Blood Cells % 0.0 Laboratory test 11/03/2018 [facility] Erythrocyte Sed 21 mm/Hr Normal 0-[address] [place] [address] [phone] Urine Culture And 11/03/2018 [facility] Urine Culture SEE [address] [place] [address] BELOW [phone] Thiopurine 10/27/2018 [facility] Interpretation See 16 Methyltransferase [address] [place] [address] [phone] 6-Methylmercaptopurine 3.76 nmol/mL/h 3.00-6.66 6Methylmercaptopurine Riboside 6.36 nmol/mL/h 5.04-9.57 6-Methylthioguanine riboside 4.11 nmol/mL/h 2.70-5.84 Reviewed By See Comment 17 Laboratory test 10/27/2018 [facility] Complement C3 110 mg/dL 75 - 175 [address] [place] [address] [phone] Complement C4 26 mg/dL 14 - 40 19 Anti Double Stranded Dna AB 53.8 IU/mL Abnormal 20 Urine Culture And 10/27/2018 [facility] Urine Culture SEE RESULT [address] [place] [address] [phone] Urinalysis Profile 10/27/2018 [facility] Urine Color Yellow [address] [place] [address] [phone] Urine Appearance Clear Urine Specific [place] 1.015 Normal 1.010-1.030 Urine pH 5.0 Normal 5-9 Urine Urobilinogen Negative Negative Urine Ketones Negative Negative Urine Protein 1+(30 mg/dL) Abnormal Negative Urine Leukocytes 2+ Abnormal Negative Urine Blood Negative Negative Urine Nitrite Negative Negative Urine Bilirubin Negative Negative Urine Glucose Negative Negative Urine White Blood Cell 3+(>20/hpf) Abnormal Absent Urine Red Blood Cell 2+(6-10/hpf) Abnormal Absent Urine Bacteria Absent Absent Urine Squamous Epithelial Cell Present Abnormal Absent Laboratory test 10/27/2018 [facility] C Reactive 1.70 mg/L Normal <8.[address] [place] [address] [phone] Erythrocyte Sed Rate 18 mm/Hr Normal 0-29 CMP Panel 10/27/2018 [facility] Sodium 139 mmol/L Normal 135- [address] [place] [address] [phone] Potassium 4.8 mmol/L Normal 3.5-5.0 Chloride 110 mmol/L Normal 101-111 Co2 Carbon Dioxide 21 mmol/L Low 22-32 Anion Gap 8 mmol/L Normal 2-11 Glucose 86 mg/dL Normal 70-100 Blood Urea Nitrogen 37 mg/dL High 6-24 Creatinine 1.76 mg/dL High 0.51-0.95 BUN/Creatinine Ratio 21.0 High 8-20 Calcium 9.7 mg/dL Normal 8.6-10.3 Total Protein 7.2 g/dL Normal 6.4-8.9 Albumin 4.4 g/dL Normal 3.2-5.2 Globulin 2.8 g/dL Normal 2-4 Albumin/Globulin Ratio 1.6 Normal 1-3 Total Bilirubin 0.20 mg/dL Normal 0.2-1.0 Alkaline Phosphatase 80 U/L Normal 34-104 Alt 11 U/L Normal 7-52 Ast 15 U/L Normal 13-39 Egfr Non- 29.8 >60 Egfr 36.0 >60 22 CBC W/Auto 10/27/2018 [facility] White Blood 10.1 10^3/uL Normal 3.5-10.[address] [place] [address] [phone] Red Blood Count 4.58 10^6/uL Normal 3.70-4.87 Hemoglobin 11.7 g/dL Low 12.0-16.0 Hematocrit 37 % Normal 35-47 Mean Corpuscular Volume 82 fL Normal 80-97 Mean Corpuscular Hemoglobin 26 pg Low 27-31 Mean Corpuscular HGB Conc 31 g/dL Normal 31-36 Red Cell Distribution Width 15 % Normal 10.5-15 Platelet Count 397 10^3/uL Normal 150-450 Mean Platelet Volume 9.2 fL Normal 7.4-10.4 Abs Neutrophils 6.7 10^3/uL Normal 1.5-7.7 Abs Lymphocytes 2.1 10^3/uL Normal 1.0-4.8 Abs Monocytes 0.9 10^3/uL High 0-0.8 Abs Eosinophils 0.2 10^3/uL Normal 0-0.6 Abs Basophils 0.1 10^3/uL Normal 0-0.2 Abs Nucleated RBC 0.0 10^3/uL Granulocyte % 66.2 % Lymphocyte % 21.3 % Monocyte % 9.2 % Eosinophil % 2.2 % Basophil % 1.1 % Nucleated Red Blood Cells % 0.0 Laboratory test 10/20/2018 [facility] Erythrocyte Sed 20 mm/Hr Normal 0-[address] [place] [address] [phone] C Reactive Protein 1.07 mg/L Normal <8.01 CBC W/Auto 10/20/2018 [facility] White Blood 7.0 10^3/uL Normal 3.5-10.[address] [place] [address] [phone] Red Blood Count 4.19 10^6/uL Normal 3.70-4.87 Hemoglobin 11.0 g/dL Low 12.0-16.0 Hematocrit 35 % Normal 35-47 Mean Corpuscular Volume 83 fL Normal 80-97 Mean Corpuscular Hemoglobin 26 pg Low 27-31 Mean Corpuscular HGB Conc 32 g/dL Normal 31-36 Red Cell Distribution Width 15 % Normal 10.5-15 Platelet Count 346 10^3/uL Normal 150-450 Mean Platelet Volume 9.2 fL Normal 7.4-10.4 Abs Neutrophils 4.4 10^3/uL Normal 1.5-7.7 Abs Lymphocytes 1.6 10^3/uL Normal 1.0-4.8 Abs Monocytes 0.6 10^3/uL Normal 0-0.8 Abs Eosinophils 0.4 10^3/uL Normal 0-0.6 Abs Basophils 0.1 10^3/uL Normal 0-0.2 Abs Nucleated RBC 0.0 10^3/uL Granulocyte % 62.1 % Lymphocyte % 23.1 % Monocyte % 8.8 % Eosinophil % 5.0 % Basophil % 1.0 % Nucleated Red Blood Cells % 0.1 CMP Panel 10/20/2018 [facility] Sodium 140 mmol/L Normal 135- [address] [place] [address] [phone] Potassium 4.6 mmol/L Normal 3.5-5.0 Chloride 110 mmol/L Normal 101-111 Co2 Carbon Dioxide 21 mmol/L Low 22-32 Anion Gap 9 mmol/L Normal 2-11 Glucose 96 mg/dL Normal 70-100 Blood Urea Nitrogen 31 mg/dL High 6-24 Creatinine 1.97 mg/dL High 0.51-0.95 BUN/Creatinine Ratio 15.7 Normal 8-20 Calcium 9.2 mg/dL Normal 8.6-10.3 Total Protein 6.9 g/dL Normal 6.4-8.9 Albumin 4.3 g/dL Normal 3.2-5.2 Globulin 2.6 g/dL Normal 2-4 Albumin/Globulin Ratio 1.7 Normal 1-3 Total Bilirubin 0.30 mg/dL Normal 0.2-1.0 Alkaline Phosphatase 68 U/L Normal 34-104 Alt 13 U/L Normal 7-52 Ast 19 U/L Normal 13-39 Egfr Non- 26.1 >60 Egfr 31.6 >60 23 Urinalysis Profile 10/20/2018 [facility] Urine Color Yellow [address] [place] [address] [phone] Urine Appearance Clear Urine Specific [place] 1.008 Low 1.010-1.030 Urine pH 5.0 Normal 5-9 Urine Urobilinogen Negative Negative Urine Ketones Negative Negative Urine Protein Negative Negative Urine Leukocytes 2+ Abnormal Negative Urine Blood 1+ Abnormal Negative Urine Nitrite Negative Negative Urine Bilirubin Negative Negative Urine Glucose Negative Negative Urine White Blood Cell 1+(6-10/hpf) Abnormal Absent Urine Red Blood Cell Trace(0-2/hpf) Absent Urine Bacteria Absent Absent Urine Squamous Epithelial Cell Present Abnormal Absent Urine Culture And 10/20/2018 [facility] Urine Culture SEE RESULT [address] [place] [address] [phone] Thiopurine 10/20/2018 [facility] Interpretation See Comment 25 Methyl[address] [place] [address] [phone] 6-Methylmercaptopurine 2.65 nmol/mL/h Abnormal 3.00-6.66 6Methylmercaptopurine Riboside 5.86 nmol/mL/h 5.04-9.57 6-Methylthioguanine riboside 4.15 nmol/mL/h 2.70-5.84 Reviewed By See Comment 26 Laboratory test 10/20/2018 [facility] RBC Folic See Comment [address] [place] [address] [phone] Laboratory test 09/30/2018 [facility] Creatine 93 U/L Normal 10-22 [address] Kinase(CK) 3 [place] [address] [phone] C Reactive Protein 1.11 mg/L Normal <8.01 29 Folic Acid (Folate) 12.87 ng/mL >3.99 30 Vitamin B12 427 pg/mL Normal 180-914 31 Vitamin D Total 25(Oh) 36.3 ng/mL Normal 20-50 32 Erythrocyte Sed Rate 27 mm/Hr Normal 0-29 33 Comp Metabolic 09/30/2018 [facility] Sodium 139 mmol/L Normal 135-[address] [place] [address] [phone] Potassium 4.9 mmol/L Normal 3.5-5.0 Chloride 108 mmol/L Normal 101-111 Co2 Carbon Dioxide 21 mmol/L Low 22-32 Anion Gap 10 mmol/L Normal 2-11 Glucose 81 mg/dL Normal 70-100 Blood Urea Nitrogen 22 mg/dL Normal 6-24 Creatinine 1.71 mg/dL High 0.51-0.95 BUN/Creatinine Ratio 12.9 Normal 8-20 Calcium 9.1 mg/dL Normal 8.6-10.3 Total Protein 6.5 g/dL Normal 6.4-8.9 Albumin 4.4 g/dL Normal 3.2-5.2 Globulin 2.1 g/dL Normal 2-4 Albumin/Globulin Ratio 2.1 Normal 1-3 Total Bilirubin 0.30 mg/dL Normal 0.2-1.0 Alkaline Phosphatase 64 U/L Normal 34-104 Alt 14 U/L Normal 7-52 Ast 19 U/L Normal 13-39 Egfr Non- 30.9 >60 Egfr 37.4 >60 34 CBC Auto 09/30/2018 [facility] White Blood 6.3 10^3/uL Normal 3.5-10.[address] [place] [address] [phone] Red Blood Count 4.15 10^6/uL Normal 3.70-4.87 Hemoglobin 11.0 g/dL Low 12.0-16.0 Hematocrit 34 % Low 35-47 Mean Corpuscular Volume 83 fL Normal 80-97 Mean Corpuscular Hemoglobin 26 pg Low 27-31 Mean Corpuscular HGB Conc 32 g/dL Normal 31-36 Red Cell Distribution Width 16 % High 10.5-15 Platelet Count 345 10^3/uL Normal 150-450 Mean Platelet Volume 9.7 fL Normal 7.4-10.4 Abs Neutrophils 4.5 10^3/uL Normal 1.5-7.7 Abs Lymphocytes 1.0 10^3/uL Normal 1.0-4.8 Abs Monocytes 0.5 10^3/uL Normal 0-0.8 Abs Eosinophils 0.2 10^3/uL Normal 0-0.6 Abs Basophils 0.1 10^3/uL Normal 0-0.2 Abs Nucleated RBC 0.0 10^3/uL Granulocyte % 71.4 % Lymphocyte % 15.2 % Monocyte % 8.6 % Eosinophil % 3.9 % Basophil % 0.9 % Nucleated Red Blood Cells % 0.0 Laboratory test 09/30/2018 [facility] Complement C4 22 mg/dL 14 - [address] [place] [address] [phone] Complement C3 96 mg/dL 75 - 175 36 Anti Double Stranded Dna AB 67.2 IU/mL Abnormal 37 Laboratory test 07/28/2018 [facility] Vitamin B12 585 pg/mL Normal 180-914 38 finding [address] [place] [address] [phone] Folic Acid (Folate) 8.19 ng/mL >3.99 39 Comp Metabolic 07/28/2018 [facility] Sodium 140 mmol/L Normal 135-145 Panel [address] [place] [address] [phone] Potassium 4.2 mmol/L Normal 3.5-5.0 Chloride 111 mmol/L Normal 101-111 Co2 Carbon Dioxide 22 mmol/L Normal 22-32 Anion Gap 7 mmol/L Normal 2-11 Glucose 78 mg/dL Normal 70-100 Blood Urea Nitrogen 23 mg/dL Normal 6-24 Creatinine 1.34 mg/dL High 0.51-0.95 BUN/Creatinine Ratio 17.2 Normal 8-20 Calcium 8.4 mg/dL Low 8.6-10.3 Total Protein 6.1 g/dL Low 6.4-8.9 Albumin 4.1 g/dL Normal 3.2-5.2 Globulin 2.0 g/dL Normal 2-4 Albumin/Globulin Ratio 2.1 Normal 1-3 Total Bilirubin 0.20 mg/dL Normal 0.2-1.0 Alkaline Phosphatase 63 U/L Normal 34-104 Alt 7 U/L Normal 7-52 Ast 12 U/L Low 13-39 Egfr Non- 40.9 >60 Egfr 49.5 >60 40 Laboratory test 07/28/2018 [facility] Creatine 82 U/L Normal 10-223 41 finding 101 [facility] Kinase(CK) [place] [address] [phone] C Reactive Protein 2.16 mg/L Normal <8.01 42 Vitamin D Total 25(Oh) 43.0 ng/mL Normal 20-50 43 CBC Auto 07/28/2018 [facility] White Blood 7.6 10^3/uL Normal 3.5-10.[address] [place] [address] [phone] Red Blood Count 4.10 10^6/uL Normal 4.00-5.40 Hemoglobin 11.1 g/dL Low 12.0-16.0 Hematocrit 34 % Low 35-47 Mean Corpuscular Volume 83 fL Normal 80-97 Mean Corpuscular Hemoglobin 27 pg Normal 27-31 Mean Corpuscular HGB Conc 33 g/dL Normal 31-36 Red Cell Distribution Width 16 % High 10.5-15 Platelet Count 365 10^3/uL Normal 150-450 Mean Platelet Volume 9.4 fL Normal 7.4-10.4 Abs Neutrophils 5.1 10^3/uL Normal 1.5-7.7 Abs Lymphocytes 1.4 10^3/uL Normal 1.0-4.8 Abs Monocytes 0.8 10^3/uL Normal 0-0.8 Abs Eosinophils 0.3 10^3/uL Normal 0-0.6 Abs Basophils 0.1 10^3/uL Normal 0-0.2 Abs Nucleated RBC 0 10^3/uL Granulocyte % 66.9 % Lymphocyte % 18.1 % Monocyte % 10.1 % Eosinophil % 3.8 % Basophil % 1.1 % Nucleated Red Blood Cells % 0.1 Laboratory test 07/28/2018 [facility] Erythrocyte Sed 20 mm/Hr Normal 0-30 [address] [place] [address] [phone] Complement C3 99 mg/dL 75 - 175 45 Complement C4 24 mg/dL 14 - 40 46 Anti Double Stranded Dna AB 74.6 IU/mL Abnormal 47 Laboratory test 07/10/2018 [facility] Surgical SEE RESULT [address] [place] [address] [phone] 1 Because ethnic data is not always readily available, this report includes an eGFR for both -Americans and non- Americans. The National Kidney Disease Education Program (NKDEP) does not endorse the use of the MDRD equation for patients that are not between the ages of 18 and 70, are , have extremes of body size, muscle mass, or nutritional status, or are non- or non-. According to the National Kidney Foundation, irrespective of diagnosis, the stage of the disease is based on the level of kidney function: Stage Description GFR(mL/min/1.73 m(2)) 1 Kidney damage with normal or decreased GFR 90 2 Kidney damage with mild decrease in GFR 60-89 3 Moderate decrease in GFR 30-59 4 Severe decrease in GFR 15-29 5 Kidney failure <15 (or dialysis) 2 ORDERED: 07/02/18 : 12/30/18 STANDING ORDER 3 ORDERED: 07/02/18 : 12/30/18 STANDING ORDER 4 ORDERED: 07/02/18 : 12/30/18 STANDING ORDER 5 Normal Range 180 to 914 Indeterminate Range 145 to 180 Deficient Range <145 6 Total 25-Hydroxyvitamin D2 and D3 (25-OH-VitD) <10 ng/mL (severe deficiency) 10-19 ng/mL (mild to moderate deficiency) 20-50 ng/mL (optimum levels) 51-80 ng/mL (increased risk of hypercalciuria) >80 ng/mL (toxicity possible) 7 ORDERED: 07/02/18 : 12/30/18 STANDING ORDER 8 SEE RESULT BELOW Name: ROSEANNE SANCHEZ : [address]: Carlos Solorio MD Acct: [id number] Unit: [id number] AGE: 58 Location: [facility] Re12/21/18 SEX: F Status: REG REF SPEC: [id number] NIDHI: 12/21/[address] [facility] [address]: Carlos Solorio MD REQ: [id number] RECD: 12/21/18 STATUS: COMP DRAKEHR DR: Lesia Fischer MD _ SOURCE: URINE SPDESC: ORDERED: Urine Culture Procedure Result Reported Site Urine Culture Final 12/23/18- 1143 ML Mixed upon extended incubation. Suggest resubmission. * ML - Main Lab . END OF REPORT DEPARTMENT OF PATHOLOGY, [address] [place] [address] Hubert Garcia M.D. Director [facility] # [id number] 9 Test Performed by: [facility] [address] [place] [address] [place] [address] 10 Test Performed by: [place] [address] 11 Interpretation: Borderline (30.0-75.0) REFERENCE VALUE <30.0 (Negative) Test Performed by: [place] [address] 12 Because ethnic data is not always readily available, this report includes an eGFR for both -Americans and non- Americans. The National Kidney Disease Education Program (NKDEP) does not endorse the use of the MDRD equation for patients that are not between the ages of 18 and 70, are , have extremes of body size, muscle mass, or nutritional status, or are non- or non-. According to the National Kidney Foundation, irrespective of diagnosis, the stage of the disease is based on the level of kidney function: Stage Description GFR(mL/min/1.73 m(2)) 1 Kidney damage with normal or decreased GFR 90 2 Kidney damage with mild decrease in GFR 60-89 3 Moderate decrease in GFR 30-59 4 Severe decrease in GFR 15-29 5 Kidney failure <15 (or dialysis) 13 SEE RESULT BELOW Name: ROSEANNE SANCHEZ : [address]: Carlos Solorio MD Acct: [id number] Unit: [id number] AGE: 58 Location: INF Re11/12/18 SEX: F Status: REG REF SPEC: [id number] NIDHI: 11/12/18-[address]: Carlos Solorio MD REQ: [id number] RECD: 11/12/180 STATUS: COMP DRAKEHR DR: Lesia Hu MD _ SOURCE: URINE SPDESC: ORDERED: Urine Culture Procedure Result Reported Site Urine Culture Final 11/13/18- 1215 ML No growth of clinically significant organisms * ML - Main Lab . END OF REPORT DEPARTMENT OF PATHOLOGY, [address] [place] [address] Hubert Garcia M.D. Director [facility] # [id number] 14 Because ethnic data is not always readily available, this report includes an eGFR for both -Americans and non- Americans. The National Kidney Disease Education Program (NKDEP) does not endorse the use of the MDRD equation for patients that are not between the ages of 18 and 70, are , have extremes of body size, muscle mass, or nutritional status, or are non- or non-. According to the National Kidney Foundation, irrespective of diagnosis, the stage of the disease is based on the level of kidney function: Stage Description GFR(mL/min/1.73 m(2)) 1 Kidney damage with normal or decreased GFR 90 2 Kidney damage with mild decrease in GFR 60-89 3 Moderate decrease in GFR 30-59 4 Severe decrease in GFR 15-29 5 Kidney failure <15 (or dialysis) 15 SEE RESULT BELOW Name: ROSEANNE SANCHEZ : [address]: Carlos Solorio MD Acct: [id number] Unit: [id number] AGE: 58 Location: INF Re11/03/18 SEX: F Status: REG REF SPEC: [id number] NIDHI: 11/03/18-[address] [facility] [address]: Carlos Solorio MD REQ: [id number] RECD: 11/03/18-121 STATUS: COMP GAETANO DR: Lesia Hu MD _ SOURCE: URINE SPDESC: ORDERED: Urine Culture Procedure Result Reported Site Urine Culture Final 11/04/18- 1216 ML No Growth (<1,000 CFU/mL) * ML - Main Lab . END OF REPORT DEPARTMENT OF PATHOLOGY, [address] [place] [address] Hubert Garcia M.D. Director [facility] # [id number] 16 *Normal* In this whole blood sample, the profile of activity of thiopurine methyltransferase using three different substrates was normal or essentially normal. ADDITIONAL INFORMATION Liquid Chromatography-Tandem Mass Spectrometry (LC-MS/MS) This test was developed and its performance characteristics determined by [facility] in a manner consistent with CLIA requirements. This test has not been cleared or approved by the U.S. Food and Drug Administration. 17 RESULT: Sorin Landin M.D. Test Performed by: [facility] [address] [place] [address] 18 Test Performed by: [facility] [address] [place] [address] 19 Test Performed by: [place] [address] 20 Interpretation: Borderline (30.0-75.0) REFERENCE VALUE <30.0 (Negative) Test Performed by: [place] [address] 21 SEE RESULT BELOW Name: ROSEANNE SANCHEZ : [address]: Carlos Solorio MD Acct: [id number] Unit: [id number] AGE: 58 Location: INF Re10/27/18 SEX: F Status: REG REF SPEC: [id number] NIDHI: 10/27/[address] [facility] [address]: Carlos Solorio MD REQ: [id number] RECD: 10/27/181252 STATUS: GELY SALTER DR: Lesia Hu MD _ SOURCE: URINE SPDESC: ORDERED: Urine Culture Procedure Result Reported Site Urine Culture Final 10/28/18- 1616 ML No growth of clinically significant organisms * ML - Main Lab . END OF REPORT DEPARTMENT OF PATHOLOGY, [address] [place] [address] Hubert Garcia M.D. Director [facility] # [id number] 22 Because ethnic data is not always readily available, this report includes an eGFR for both -Americans and non- Americans. The National Kidney Disease Education Program (NKDEP) does not endorse the use of the MDRD equation for patients that are not between the ages of 18 and 70, are , have extremes of body size, muscle mass, or nutritional status, or are non- or non-. According to the National Kidney Foundation, irrespective of diagnosis, the stage of the disease is based on the level of kidney function: Stage Description GFR(mL/min/1.73 m(2)) 1 Kidney damage with normal or decreased GFR 90 2 Kidney damage with mild decrease in GFR 60-89 3 Moderate decrease in GFR 30-59 4 Severe decrease in GFR 15-29 5 Kidney failure <15 (or dialysis) 23 Because ethnic data is not always readily available, this report includes an eGFR for both -Americans and non- Americans. The National Kidney Disease Education Program (NKDEP) does not endorse the use of the MDRD equation for patients that are not between the ages of 18 and 70, are , have extremes of body size, muscle mass, or nutritional status, or are non- or non-. According to the National Kidney Foundation, irrespective of diagnosis, the stage of the disease is based on the level of kidney function: Stage Description GFR(mL/min/1.73 m(2)) 1 Kidney damage with normal or decreased GFR 90 2 Kidney damage with mild decrease in GFR 60-89 3 Moderate decrease in GFR 30-59 4 Severe decrease in GFR 15-29 5 Kidney failure <15 (or dialysis) 24 SEE RESULT BELOW Name: ROSEANNE SANCHEZ Heriberto : [address]: Carlos Solorio MD Acct: [id number] Unit: [id number] AGE: 58 Location: INF Re10/20/18 SEX: F Status: REG REF SPEC: [id number] NIDHI: 10/20/18-[address] [facility] [address]: Carlos Solorio MD REQ: [id number] RECD: 10/20/18 STATUS: GELY SALTER DR: Lesia Hu MD _ SOURCE: URINE [facility]: ORDERED: Urine Culture Procedure Result Reported Site Urine Culture Final 10/21/18- 1208 ML No Growth (<1,000 CFU/mL) * ML - Main Lab . END OF REPORT DEPARTMENT OF PATHOLOGY, [address] [place] [address] Hubert Garcia M.D. Director [facility] # [id number] 25 *Heterozygote* In this whole blood sample, the profile of activity of thiopurine methyltransferase (TPMT) using three different substrates showed low activity with at least one substrate. This profile is indicative of carrier status for TPMT deficiency with an underlying risk for toxicity to thiopurine drugs (for example, 6-mercaptopurine, 6-thioguanine, and azathioprine). Patients with reduced TPMT activity may still be treated with thiopurine drugs with fewer adverse effects by reducing the initial dose. ADDITIONAL INFORMATION Liquid Chromatography-Tandem Mass Spectrometry (LC-MS/MS) This test was developed and its performance characteristics determined by [facility] in a manner consistent with CLIA requirements. This test has not been cleared or approved by the U.S. Food and Drug Administration. 26 RESULT: Mansoor Frank M.D. Test Performed by: [address] [address] 27 TESTS RESULT FLAG UNITS REFERENCE INTERVAL Folate, RBC Folate, Hemolysate 260.1 ng/mL Not Estab. Hematocrit 34.8 % 34.0 - 46.6 Folate, RBC 747 ng/mL >498 Test Report Date: 10/22/2018; 10/21/[address] [facility] [address] [address] Dir: Gi Vance MD For inquiries, the physician may contact Branch: [phone] Lab: [phone] 28 ORDERED: 07/02/18 : 12/30/18 STANDING ORDER 29 ORDERED: 07/02/18 : 12/30/18 STANDING ORDER 30 ORDERED: 07/02/18 : 12/30/18 STANDING ORDER 31 Normal Range 180 to 914 Indeterminate Range 145 to 180 Deficient Range <145 32 Total 25-Hydroxyvitamin D2 and D3 (25-OH-VitD) <10 ng/mL (severe deficiency) 10-19 ng/mL (mild to moderate deficiency) 20-50 ng/mL (optimum levels) 51-80 ng/mL (increased risk of hypercalciuria) >80 ng/mL (toxicity possible) 33 ORDERED: 07/02/18 : 12/30/18 STANDING ORDER 34 Because ethnic data is not always readily available, this report includes an eGFR for both -Americans and non- Americans. The National Kidney Disease Education Program (NKDEP) does not endorse the use of the MDRD equation for patients that are not between the ages of 18 and 70, are , have extremes of body size, muscle mass, or nutritional status, or are non- or non-. According to the National Kidney Foundation, irrespective of diagnosis, the stage of the disease is based on the level of kidney function: Stage Description GFR(mL/min/1.73 m(2)) 1 Kidney damage with normal or decreased GFR 90 2 Kidney damage with mild decrease in GFR 60-89 3 Moderate decrease in GFR 30-59 4 Severe decrease in GFR 15-29 5 Kidney failure <15 (or dialysis) 35 Test Performed by: [facility] [employer] [facility] [place] [address] 36 Test Performed by: [facility] [employer] [facility] [place] [address] 37 Interpretation: Borderline (30.0-75.0) REFERENCE VALUE <30.0 (Negative) Test Performed by: [facility] [employer] [facility] [place] [address] 38 Normal Range 180 to 914 Indeterminate Range 145 to 180 Deficient Range <145 39 ORDERED: 07/02/18 : 12/30/18 STANDING ORDER 40 Because ethnic data is not always readily available, this report includes an eGFR for both -Americans and non- Americans. The National Kidney Disease Education Program (NKDEP) does not endorse the use of the MDRD equation for patients that are not between the ages of 18 and 70, are , have extremes of body size, muscle mass, or nutritional status, or are non- or non-. According to the National Kidney Foundation, irrespective of diagnosis, the stage of the disease is based on the level of kidney function: Stage Description GFR(mL/min/1.73 m(2)) 1 Kidney damage with normal or decreased GFR 90 2 Kidney damage with mild decrease in GFR 60-89 3 Moderate decrease in GFR 30-59 4 Severe decrease in GFR 15-29 5 Kidney failure <15 (or dialysis) 41 ORDERED: 07/02/18 : 12/30/18 STANDING ORDER 42 ORDERED: 07/02/18 : 12/30/18 STANDING ORDER 43 ORDERED: 07/02/18 : 12/30/18 STANDING ORDER 44 Test Performed by: [facility] [address] [place] [address] Hubert Garcia M.D. Director of Laboratory 45 Test Performed by: [place] [address] 46 Test Performed by: [place] [address] 47 Interpretation: Borderline (30.0-75.0) REFERENCE VALUE <30.0 (Negative) Test Performed by: [place] [address] 48 SEE RESULT BELOW Name: ROSEANNE SANCHEZ : [address]: Jorje Harrison MD Acct: [id number] Unit: [id number] AGE: 57 Location: [facility] Re07/10/18 SEX: F Status: REG REF SPEC: [id number] NIDHI: 07/10/[address] [facility] [address]: Jorje Harrison MD REQ: [id number] RECD: 07/10/18 STATUS: SOUT _ ORDERED: LEVEL 4, IMMUNO-FIRST COMMENTS: [id number] FINAL DIAGNOSIS Uterus, endocervix, curettage: -- 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 COMMENT: A p16 immunohistochemical stain, with appropriately reacting controls, is focally positive in a patchy pattern, supporting the diagnosis. PRE-OPERATIVE DIAGNOSIS Normal Pap, positive high risk HPV 16 GROSS DESCRIPTION The specimen is received in formalin labeled, ECC, and consists of a 1.5 x 1.2 x 0.3 cm aggregate of ritchie mucus which is submitted entirely in one cassette. Signed by and Reported on: Beata Greenfield MD 07/15/18 1049 END OF REPORT DEPARTMENT OF PATHOLOGY, [address] [place] [address] Hubert Garcia M.D. Director [facility] # [id number] Procedures Date Code Description Status 07/28/2018 05717 Nerve Conduction 07-08 Studies Completed 07/28/2018 51921 Needle Electromyography Complete, Five Or More Muscles Completed Studied 07/10/2018 77509 Colposcopy,W/Endocervical Curettage Completed 04/08/2018 [id number] Bone Mineral Density Test Completed 04/08/2018 [id number] Mammogram Completed 03/11/2016 [id number] Mammogram Completed 09/04/2015 [id number] Mammogram Completed 08/25/2015 [id number] Mammogram Completed 02/16/2014 [id number] Bone Mineral Density Test Completed 10/06/2012 [id number] Colonoscopy Completed Medical Devices Description No Information Available Encounters Type Date Location Provider Dx Diagnosis Office Visit 12/22/2018 [facility] Internal Lesia F33.9 Major depressive 10:20a Medicine - Berta Hu M.D. disorder, recurrent, unspecified Office Visit 11/17/2018 Rheumatology Mathew Cota2.Kt Systemic lupus 1:00p [facility] erythematosus, unspecified D64.9 Anemia, unspecified J01.90 Acute sinusitis, unspecified Z79.899 [facility] Office Visit 10/06/2018 Rheumatology Carlos M32.Kt Systemic lupus 10:40a [facility] Solorio M.D. erythematosus, unspecified D64.9 Anemia, unspecified Z79.899 [facility] drug therapy E55.9 Vitamin D deficiency, unspecified Office Visit 09/22/2018 9:20a [facility] Internal Lesia Hu, R41.3 Other amnesia [facility] Berta Fagan H53.2 Diplopia F33.9 Major depressive disorder, recurrent, unspecified M32.9 Systemic lupus erythematosus, unspecified Office Visit 08/31/2018 2:20p [facility] Internal Lesia M32.9 Systemic lupus Laura Hu M.D. erythematosus, Ccmob unspecified F33.9 Major depressive disorder, recurrent, unspecified Office Visit 08/19/2018 Rheumatology Carlos M32.9 Systemic lupus 8:20a [facility] Sol[facility] M.D. erythematosus, unspecified D64.9 Anemia, unspecified Z79.899 Other emt intermediate (current) drug therapy E55.9 Vitamin D deficiency, unspecified Office Visit 08/11/2018 11:40a [facility] Internal Shelia Chin J01.90 Acute sinusitis, Medicine - N.P. unspecified Ccmob Office Visit 07/20/2018 10:40a [facility] Graf F33.9 Major depressive Internal Rylan Hu disorder, Medicine-Arroww recurrent, ood unspecified Assessments Date Code Description Provider 01/01/2019 M32.Kt Systemic lupus erythematosus, unspecified Carlos Solorio M.D. 01/01/2019 D64.9 Anemia, unspecified Carlos Solorio M.D. 01/01/2019 E55.9 Vitamin D deficiency, unspecified Carlos Solorio M.D. 01/01/2019 Z79.899 [facility] drug therapy Carlos Solorio M.D. 12/22/2018 F33.9 Major depressive disorder, recurrent, Lesia Hu M.D. unspecified 11/17/2018 M32.9 Systemic lupus erythematosus, unspecified Carlos Solorio M.D. 11/17/2018 D64.9 Anemia, unspecified Carlos Solorio M.D. 11/17/2018 J01.90 Acute sinusitis, unspecified Carlos Solorio M.D. 11/17/2018 Z79.899 [facility] drug therapy Carlos Solorio M.D. 10/06/2018 M32.9 Systemic lupus erythematosus, unspecified Carlos Solorio M.D. 10/06/2018 D64.9 Anemia, unspecified Carlos Solorio M.D. 10/06/2018 Z79.899 Other emt intermediate (current) drug therapy Carlos Solorio M.D. 10/06/2018 E55.9 Vitamin D deficiency, unspecified Carlos Solorio M.D. 09/22/2018 R41.3 Other amnesia Lesia Hu M.D. 09/22/2018 H53.2 Diplopia Lesia Hu M.D. 09/22/2018 F33.9 Major depressive disorder, recurrent, Lesia Hu M.D. unspecified 09/22/2018 M32.9 Systemic lupus erythematosus, unspecified Lesia Hu M.D. 08/31/2018 M32.9 Systemic lupus erythematosus, unspecified Lesia Hu M.D. 08/31/2018 F33.9 Major depressive disorder, recurrent, Lesia Hu M.D. unspecified 08/19/2018 M32.9 Systemic lupus erythematosus, unspecified Carlos Solorio M.D. 08/19/2018 D64.9 Anemia, unspecified Carlos Solorio M.D. 08/19/2018 Z79.899 [facility] drug therapy Carlos Solorio M.D. 08/19/2018 E55.9 Vitamin D deficiency, unspecified Carlos Solorio M.D. 08/11/2018 J01.90 Acute sinusitis, unspecified Shelia Chin, N.P. 07/28/2018 R53.1 Weakness Josh Barfield MD 07/28/2018 M79.10 Myalgia, unspecified site Josh Barfield MD 07/28/2018 R20.2 Paresthesia of skin Josh Barfield MD 07/20/2018 F33.9 Major depressive disorder, recurrent, Lesia Hu M.D. 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 at [facility] Internal Medicine - [facility]02/17/2019 3:20 pm - Carlos Solorio M.D. at [facility]03/16/2019 9:20 am - Lesia Hu M.D. at [facility] Internal Medicine - [facility]01/01/2019 - Carlos Solorio M.D.M32.9 Systemic lupus erythematosus, unspecifiedFollow up:Follow up February 17 as scheduled or sooner if wihimcS56.9 Anemia, aurybkutwswK49.9 Vitamin D deficiency, nelyklskaryW41.899 Other emt intermediate (current) drug therapyFollow up:Follow up in 6 weeks or sooner if needed Functional Status Description No Information Available Mental Status Description No Information Available Referrals Description No Information Available
[2019-01-04 11:28] VITALS: BP 178/101
--- NOTE | 2019-01-04 11:48 | UC ---
Throat Pain/Nasal Alfred HPI - HPI Summary HPI Summary: 58-year-old woman is here with a chief complaint of one week of upper respiratory tract infection symptoms. She's been having rhinorrhea that's green. Has postnasal drip. Been having fevers. No chest congestion no shortness of breath. Patient does have lupus and she is on prednisone. - History of Current Complaint Chief Complaint: UCRespiratory Stated Complaint: URI Time Seen by Provider: 01/04/19 11:34 Pain Intensity: 8 - Allergies/Home Medications Allergies/Adverse Reactions: Allergies Allergy/AdvReac Type Severity Reaction Status Date / Time codeine Allergy Unknown Verified 01/04/19 11:26 Reaction Details sulfamethoxazole Allergy See Comment Verified 01/04/19 11:26 [From Bactrim] trimethoprim [From Bactrim] Allergy See Comment Verified 01/04/19 11:26 Home Medications: Home Medications Acetaminophen TAB* [Tylenol TAB*] 325 mg PO Q4H PRN 01/04/19 [History Confirmed 01/04/19] Astelin Nasal [place] spray BOTH NARES DAILY 01/04/19 [History] Mycophenolate Mofetil* ORALSYR [Cellcept* ORALSYR] 2 ml PO BID 01/04/19 [ History Confirmed 01/04/19] PMH/Surg Hx/FS Hx/Imm Hx Previously Healthy: Yes - LUPUS Endocrine History: Dyslipidemia Cardiovascular History: Hypertension GI/ History: Gastroesophageal Reflux Other History Of: Anticoagulant Therapy - lovenox - Surgical History Surgical History: Yes Surgery Procedure, Year, and Place: C section - Family History Known Family History: Positive: Cardiac Disease - Social History Alcohol Use: Rare Alcohol Amount: 1 drink/month Substance Use Type: None Smoking Status (MU): Never Smoked Tobacco Have You Smoked in the Last Year: No - Immunization History Most Recent Influenza Vaccination: 2013 Most Recent Tetanus Shot: unknown Most Recent Pneumonia Vaccination: 12/2014 Review of Systems All Other Systems Reviewed And Are Negative: Yes Constitutional: Positive: Fever, Chills Skin: Positive: Negative Eyes: Positive: Negative ENT: Positive: Sore Throat, Nasal Discharge, Sinus Congestion Respiratory: Positive: Negative Cardiovascular: Positive: Negative Gastrointestinal: Positive: Negative Motor: Positive: Negative Neurovascular: Positive: Negative Musculoskeletal: Positive: Negative Neurological: Positive: Negative Psychological: Positive: Negative Is Patient Immunocompromised?: No Physical Exam Triage Information Reviewed: Yes Appearance: No Pain Distress, Well-Nourished, Ill-Appearing - MILD Vital Signs: Initial Vital Signs Temp 98.2 F 01/04/19 11:22 Pulse 93 01/04/19 11:22 Resp 16 01/04/19 11:22 BP 178/101 01/04/19 11:22 Pulse Ox 98 01/04/19 11:22 Vital Signs Reviewed: Yes Eye Exam: Normal Eyes: Positive: Conjunctiva Clear ENT: Positive: Pharyngeal erythema, Nasal congestion, Nasal drainage, TMs normal. Negative: Muffled voice Neck: Positive: Supple Respiratory: Positive: Lungs clear, Normal breath sounds, No respiratory distress Cardiovascular: Positive: RRR Musculoskeletal: Positive: Strength Intact, ROM Intact Neurological: Positive: Alert, Muscle Tone Normal Psychological: Positive: Age Appropriate Behavior Skin Exam: Normal Throat Pain/Nasal Course/Dx - Course Course Of Treatment: We discussed viral versus bacterial infections and the role of antibiotics. Because the patient is potential immunocompromised being on prednisone for her lupus we'll start Augmentin at this time. Patient will follow-up with her primary care doctor get reevaluated sooner if worse. We also discussed her high blood pressure and patient does see a deicer tester and a diamond die driller and a primary care physician and she will follow-up with her doctor. - Differential Dx/Diagnosis Provider Diagnosis: Sinusitis, Hypertension Discharge - Sign-Out/Discharge Documenting (check all that apply): Patient Departure All imaging exams completed and their final reports reviewed: No Studies - Discharge Plan Condition: Stable Disposition: HOME Prescriptions: Amoxicillin/Clavulanate TAB* [Augmentin TAB 875*] 875 mg PO BID #20 tab Patient Education Materials: Sinusitis (ED), Hypertension (ED) Referrals: Lesia Hu MD [Primary Care Provider] - Additional Instructions: FOLLOW UP WITH YOUR DOCTOR THIS WEEK FOR YOUR HYPERTENSION. GO TO THE EMERGENCY DEPARTMENT IF YOUR CONDITION WORSENS; FEVER, YOU FEEL ILL OR ANY QUESTIONS OR CONCERNS. - Billing Disposition and Condition Condition: STABLE Disposition: Home
== END 2019-01-04 11:50 | disposition home or self-care (01) ==
LOC: UCEAST 11:17
DX: J32.9 Chronic sinusitis, unspecified (principal); I10 Essential (primary) hypertension; A18.4 Tuberculosis of skin and subcutaneous tissue; E78.5 Hyperlipidemia, unspecified; K21.9 Gastro-esophageal reflux disease without esophagitis; Z79.01 Long term (current) use of anticoagulants; Z88.5 Allergy status to narcotic agent; Z88.2 Allergy status to sulfonamides
CPT/HCPCS: 99212; G0463